=== PATIENT | male | born 1995 | race Caucasian/White ===

== ENCOUNTER 2017-01-24 13:42 | Emergency (ER) | payer BC ==
[2017-01-24] MEDS ORDERED: NS 1,000 ML IV ONE (16:04)
[2017-01-24] MEDS ORDERED: ONDANSETRON 4 MG/2 ML VIAL IVP ONE (16:04)
--- NOTE | 2017-01-24 16:04 | EDPHY ---
H & P Stated Complaint: RLQ abd. testile pain, freq, urgency, flank pain Source: Patient Exam Limitations: No limitations - Personal History Current Tetanus/Diphtheria Vaccine: Yes Current Tetanus Diphtheria and Acellular Pertussis (TDAP): Yes - Medical/Surgical History Hx Asthma: No Hx Chronic Respiratory Disease: No Hx Diabetes: No Hx Cardiac Disease: No Hx Renal Disease: No Hx Cirrhosis: No Hx Alcoholism: No Hx HIV/AIDS: No Hx Splenectomy or Spleen Trauma: No Other PMH: FOOT SURGERY - Social History Smoking Status: Never smoked HPI/ROS: CHIEF COMPLAINT: Abdominal pain, flank pain, testicular pain HISTORY OF PRESENT ILLNESS: Patient complains of 2 days history of right-sided flank and abdominal pain. Started the right flank and upper quadrant. It has moved to the right side of the abdomen. It radiates into the right testicle. Some moderate to severe pain. The right testicle is in moderate to severe pain as well. No position of comfort. He has had nausea but no vomiting. No fever chills. No trauma or injury. He does have frequent urination and difficulty urinating. No history of stones. No history of torsion. No history of penile discharge. Denies congenital cryptorchidism. No other associated complaints or modifying factors. REVIEW OF SYSTEMS: Ten systems reviewed and are negative unless otherwise noted in the HPI PAST MEDICAL HISTORY: Back pain PAST SURGICAL HISTORY: None SOCIAL HISTORY: Nonsmoker. Occasional alcohol. Occasional marijuana FAMILY HISTORY: Noncontributory EXAMINATION General Appearance: Alert, no distress but in obvious discomfort Head: normocephalic, atraumatic Eyes: Pupils equal and round, no conjunctival pallor or injection ENT, Mouth: Mucous membranes moist Neck: Normal inspection, supple, non-tender Respiratory: Lungs are clear to auscultation. No wheezing or rhonchi or crackles Cardiovascular: Regular rate and rhythm. No murmur. Pulses intact distally Gastrointestinal: Abdomen is soft and non distended. Tenderness in the right flank. Tenderness in the right upper quadrant right lower quadrant. No guarding. No tympany. No rigidity or distention. Back: non-tender, no bony abnormalities Neurological: A&O, nonfocal, normal gait Skin: Warm and dry, no rash Extremities: Nontender, no pedal edema Psychiatric: Mood and affect normal DIFFERENTIAL DIAGNOSES: Including but not limited to ureteral stone, renal stone, bladder calculus, appendicitis, testicular torsion, epididymitis, UTI, pyelonephritis, colitis MDM: 4:04 p.m. History examination that suggest is ureteral or renal stone. He does have flank and right-sided abdominal pain. But given the fact that he does have right-sided testicular pain, I have ordered ultrasound of the testicles. Proceed with CT scan for stone should this be negative. Urinalysis is pending. Laboratory studies are currently being drawn. IV fluid, pain medication have been ordered. He is in no acute distress. 4:30 p.m. Attempted to re-evaluate the patient, but ultrasound already in the room. Urinalysis shows 1+ blood but no signs of infection. CBC is completely unremarkable. Chemistry is also completely unremarkable. 4:35 p.m. Ultrasound has been performed. The plastic eye technician states an unofficial interpretation that there is no evidence of testicular torsion. Although I am awaiting the interpretation by radiologist, I will order CT scan of the abdomen pelvis to evaluate for ureteral stone. 4:40 p.m. I have re-evaluated the patient. His pain is improving. Still has a right- sided flank and abdominal pain. No guarding. Nonacute abdomen. There is no leukocytosis or fever. Chemistry is completely unremarkable. I have ordered Toradol for the possibility of ureteral renal stone. CT scan is pending. 4:55 p.m. Notified by radiologist Dr. Moses. Ultrasound of the testicle reveals no evidence of torsion. There is possible evidence of epididymitis on the right side, at the tail. I discussed this with the patient but he denies any sexual intercourse over the past 4 weeks. I have ordered un-clean urine studies for GC and chlamydia. I have also ordered a dose of intramuscular Rocephin 250 mg. I will prescribe him for doxycycline for empiric coverage. 5:00 p.m. At this time I have discussed the case with Dr. Andujar. He will assume care of the patient. This is pending CT scan and further urine studies. Please see his note for final disposition. (Felix Rock) Constitutional: Initial Vital Signs Temperature (C) 36.7 C 01/24/17 14:01 Heart Rate 78 01/24/17 14:01 Respiratory Rate 16 01/24/17 14:01 Blood Pressure 168/116 H 01/24/17 14:01 O2 Sat (%) 96 01/24/17 14:01 O2 Delivery Mode Room Air Allergies/Adverse Reactions: No Known Allergies Allergy (Unverified 06/26/15 07:14) Home Medications: Medication Instructions Recorded Amoxicillin Trihydrate 500 mg PO TID 7 Days cap 06/26/15 [Amoxicillin] Neomy Sulf/Polymyx B Sulf/Hc 3 drops OT BID 7 Days 06/26/15 [Cortisporin Otic Solution] Pen Vk 250 mg Prepack#6 06/26/15 oxyCODONE/APAP 5/325 [Percocet 1 - 2 tab PO Q4H PRN #20 tab 06/26/15 5/325 (*)] Doxycycline Hyclate 100 mg PO BID #28 tablet 01/24/17 Ondansetron Odt [Zofran Odt 4 mg 4 mg PO Q6 PRN #12 tab 01/24/17 (*)] oxyCODONE HCL/ACETAMINOPHEN 1 each PO Q4-6PRN PRN #11 tablet 01/24/17 [Percocet 5-325 mg Tablet] Medical Decision Making - Diagnostics Imaging Results: Imaging Impressions Testicular Ultrasound 01/24/17 16:03 Impression: Query epididymitis involving the tail of the right epididymis. Findings and recommendations discussed with Felix Rock PA-C at 1651 hours on January 24, 2017. Final report concurs with initial preliminary interpretation. Abdomen/Pelvis CT 01/24/17 16:34 Impression: 1. Trace free fluid of unclear etiology. 2. Constipation. 3. Additional findings as above. Findings discussed with Dr. Sheldon Andujar on January 24, 2017 at 1751 hours. Attention: This CT examination is specifically designed to evaluate patients who are clinically suspected of having acute obstructive uropathy. This examination does not use radiographic contrast, and as such, provides only a limited evaluation of the abdomen, pelvis and retroperitoneum. If there is further clinical suspicion for pathological conditions other than obstructive uropathy, a complete CT evaluation of the abdomen and pelvis utilizing intravenous and oral contrast should be considered. CT abdomen and pelvis without IV contrast contrast shows she is trace free fluid , constipation, normal appendix, no evidence for kidney stone. (Sheldon Andujar) Procedures: Patient received IM Rocephin. (Shedlon Andujar) ED Course/Re-evaluation: Patient is re-evaluated by me at 6:30 p.m.. He looks well and feels well. He and I discussed imaging and lab results. We discussed treatment plan including criteria for return importance of follow-up and further evaluation. He expresses understanding and agreement (Sheldon Andujar) Differential Diagnosis: We considered kidney stone, pyelonephritis, urinary tract infection, testicular torsion. We do have an ultrasound finding of epididymitis. We also considered appendicitis (Sheldon Andujar) - Data Points Laboratory Results: Laboratory Results 01/24/17 16:05 01/24/17 16:05 01/24/17 01/24/17 01/24/17 16:05 16:05 16:00 WBC 8.98 10^3/uL 10^3/uL (3.80-9.50) RBC 5.51 10^6/uL 10^6/uL (4.40-6.38) Hgb 17.0 g/dL g/dL (13.7-17.5) Hct 46.8 % % (40.0-51.0) MCV 84.9 fL fL (81.5-99.8) MCH 30.9 pg pg (27.9-34.1) MCHC 36.3 g/dL g/dL (32.4-36.7) RDW 12.1 % % (11.5-15.2) Plt Count 249 10^3/uL 10^3/uL (150-400) MPV 10.4 fL fL (8.7-11.7) Neut % (Auto) 65.2 % % (39.3-74.2) Lymph % (Auto) 24.9 % % (15.0-45.0) Pennington % (Auto) 8.2 % % (4.5-13.0) Eos % (Auto) 0.8 % % (0.6-7.6) Baso % (Auto) 0.6 % % (0.3-1.7) Nucleat RBC Rel Count 0.0 % % (0.0-0.2) Absolute Neuts (auto) 5.85 10^3/uL 10^3/uL (1.70-6.50) Absolute Lymphs (auto) 2.24 10^3/uL 10^3/uL (1.00-3.00) Absolute Monos (auto) 0.74 10^3/uL 10^3/uL (0.30-0.80) Absolute Eos (auto) 0.07 10^3/uL 10^3/uL (0.03-0.40) Absolute Basos (auto) 0.05 10^3/uL 10^3/uL (0.02-0.10) Absolute Nucleated RBC 0.00 10^3/uL 10^3/uL (0-0.01) Immature Gran % 0.3 % % (0.0-1.1) Immature Gran # 0.03 10^3/uL 10^3/uL (0.00-0.10) Sodium 140 mEq/L mEq/L (134-144) Potassium 3.4 mEq/L L mEq/L (3.5-5.2) Chloride 102 mEq/L mEq/L (97-110) Carbon Dioxide 26 mEq/l mEq/l (22-31) Anion Gap 12 mEq/L mEq/L (8-16) BUN 12 mg/dL mg/dL (7-23) Creatinine 1.1 mg/dL mg/dL (0.7-1.3) Estimated GFR > 60 Glucose 83 mg/dL mg/dL (70-100) Calcium 10.1 mg/dL mg/dL (8.5-10.4) Total Bilirubin 1.4 mg/dL mg/dL (0.1-1.4) Conjugated Bilirubin 0.3 mg/dL mg/dL (0.0-0.5) Unconjugated Bilirubin 1.1 mg/dL mg/dL (0.0-1.1) AST 20 IU/L IU/L (17-59) ALT 28 IU/L IU/L (21-72) Alkaline Phosphatase 74 IU/L IU/L (38-126) Total Protein 8.2 g/dL g/dL (6.3-8.2) Albumin 4.8 g/dL g/dL (3.5-5.0) Lipase 76 IU/L IU/L (23-300) Urine Color Urine Appearance Urine pH Ur Specific Morris Urine Protein Urine Ketones Urine Blood Urine Nitrate Urine Bilirubin Urine Urobilinogen Ur Leukocyte Esterase Urine RBC Urine WBC Ur Epithelial Cells Urine Mucus Urine Glucose C.trachomatis RNA (TMA) Pending N.gonorrhoeae RNA (TMA) Pending 01/24/17 16:00 WBC RBC Hgb Hct MCV MCH MCHC RDW Plt Count MPV Neut % (Auto) Lymph % (Auto) [place] % (Auto) Eos % (Auto) Baso % (Auto) Nucleat RBC Rel Count Absolute Neuts (auto) Absolute Lymphs (auto) Absolute Monos (auto) Absolute Eos (auto) Absolute Basos (auto) Absolute Nucleated RBC Immature Gran % Immature Gran # Sodium Potassium Chloride Carbon Dioxide Anion Gap BUN Creatinine Estimated GFR Glucose Calcium Total Bilirubin Conjugated Bilirubin Unconjugated Bilirubin AST ALT Alkaline Phosphatase Total Protein Albumin Lipase Urine Color YELLOW Urine Appearance CLEAR Urine pH 6.0 (5.0-7.5) Ur Specific Morris 1.026 (1.002-1.030) Urine Protein NEGATIVE (NEGATIVE) Urine Ketones NEGATIVE (NEGATIVE) Urine Blood 1+ H (NEGATIVE) Urine Nitrate NEGATIVE (NEGATIVE) Urine Bilirubin NEGATIVE (NEGATIVE) Urine Urobilinogen 2.0 EU H EU (0.2-1.0) Ur Leukocyte Esterase NEGATIVE (NEGATIVE) Urine RBC 1-3 /hpf /hpf (0-3) Urine WBC 1-3 /hpf /hpf (0-3) Ur Epithelial Cells TRACE /lpf /lpf (NONE-1+) Urine Mucus 1+ /lpf /lpf (NONE-1+) Urine Glucose NEGATIVE (NEGATIVE) C.trachomatis RNA (TMA) N.gonorrhoeae RNA (TMA) Medications Given: Discontinued Medications Ceftriaxone Sodium (Rocephin Im Syringe) 250 mg IM EDNOW ONE PRN Reason: Protocol Stop: 01/24/17 16:56 Last Admin: 01/24/17 18:01 Dose: 250 mg Sodium Chloride (Ns) 1,000 mls @ 0 mls/hr IV EDNOW ONE; Wide Open PRN Reason: Protocol Stop: 01/24/17 16:05 Last Admin: 01/24/17 16:18 Dose: 1,000 mls Ketorolac Tromethamine (Toradol) 30 mg IVP EDNOW ONE Stop: 01/24/17 16:37 Last Admin: 01/24/17 16:46 Dose: 30 mg Morphine Sulfate (Morphine) 4 mg IVP EDNOW ONE Stop: 01/24/17 16:05 Last Admin: 01/24/17 16:15 Dose: 4 mg Ondansetron HCl (Zofran) 4 mg IVP EDNOW ONE Stop: 01/24/17 16:05 Last Admin: 01/24/17 16:15 Dose: 4 mg Departure - Departure Disposition: Home, Routine, Self-Care Clinical Impression: Flank pain, Testicular pain, right, Epididymitis Condition: Good Instructions: Epididymitis (ED) Additional Instructions: Scrotal support. Ibuprofen 600 mg every 6 hours. Percocet in addition as needed for pain. Doxycycline as antibiotic. Return for worsening symptoms including fever, worsening abdominal pain. Recheck in 2-3 days without fail Referrals: Nicholas Walters MD [Medical Doctor] - As per Instructions NONE *PRIMARY CARE P,. [Primary Care Provider] - As per Instructions Braeden Mccracken MD [Medical Doctor] - 2-3 days without fail Prescriptions: Doxycycline Hyclate 100 mg PO BID #28 tablet Ondansetron Odt [Zofran Odt 4 mg (*)] 4 mg PO Q6 PRN #12 tab PRN Reason: Nausea/Vomiting, Use 1st oxyCODONE HCL/ACETAMINOPHEN [Percocet 5-325 mg Tablet] 1 each PO Q4-6PRN PRN # 11 tablet PRN Reason: Pain, Breakthrough
[2017-01-24 16:16] LABS: % IMMATURE GRANULYOCYTES 0.3 % (0.0-1.1); ABSOLUTE IMMATURE GRANULOCYTES 0.03 10^3/uL (0.00-0.10); ADD DIFF? NO; ADD MORPH? NO; ADD SCAN? NO; ATYPICAL LYMPHOCYTE FLAG 10 (0-99); FRAGMENT RBC FLAG 0 (0-99); HEMATOCRIT 46.8 % (40.0-51.0); LEFT SHIFT FLG 0 (0-99); LIPEMIA HEMOLYSIS FLAG 90 (0-99); MEAN CELL HEMOGLOBIN 30.9 pg (27.9-34.1); MEAN CELL HEMOGLOBIN CONCENTR. 36.3 g/dL (32.4-36.7); MEAN CELL VOLUME 84.9 fL (81.5-99.8); MEAN PLATELET VOLUME 10.4 fL (8.7-11.7); PLATELET CLUMPS FLAG 0 (0-99); PLATELET COUNT 249 10^3/uL (150-400); RED BLOOD CELL COUNT 5.51 10^6/uL (4.40-6.38); RED CELL DISTRIBUTION WIDTH 12.1 % (11.5-15.2)
[2017-01-24 16:20] LABS: COLOR YELLOW; LEUKOCYTE ESTERASE,URINE NEGATIVE (NEGATIVE); MUCUS 1+ /lpf (NONE-1+); NITRITE,URINE NEGATIVE (NEGATIVE)
[2017-01-24 16:28] LABS: ALANINE AMINOTRANSFERASE 28 IU/L (21-72); ALBUMIN 4.8 g/dL (3.5-5.0); ALKALINE PHOSPHATASE 74 IU/L (38-126); ANION GAP 12 mEq/L (8-16); ASPARTATE AMINOTRANSFERASE 20 IU/L (17-59); BILIRUBIN,TOTAL 1.4 mg/dL (0.1-1.4); BILIRUBIN-CONJUGATED 0.3 mg/dL (0.0-0.5); BILIRUBIN-UNCONJUGATED 1.1 mg/dL (0.0-1.1); CALCIUM 10.1 mg/dL (8.5-10.4); CARBON DIOXIDE 26 mEq/l (22-31); CHLORIDE 102 mEq/L (97-110); CREATININE 1.1 mg/dL (0.7-1.3); GLOMERULAR FILTRATION RATE > 60; GLUCOSE 83 mg/dL (70-100); POTASSIUM 3.4 mEq/L (3.5-5.2); SODIUM 140 mEq/L (134-144); TOTAL PROTEIN 8.2 g/dL (6.3-8.2)
[2017-01-24] MEDS ORDERED: KETOROLAC 30 MG/1 ML SDV IVP ONE (16:36)
[2017-01-24] MEDS ORDERED: CEFTRIAXONE IM 350 MG/ML SYRINGE IM ONE (16:55)
[2017-01-24 17:03] VITALS: RESP 18
[2017-01-24 18:48] VITALS: BP 167/87; PULSE 73; TEMP 98.4; O2SAT 91
[2017-01-25 13:11] LABS: CHLAMYDIA AMPLIFICATION GENPRB NEGATIVE (NEGATIVE)
== END 2017-01-24 18:48 | disposition home or self-care (01) ==
DX: N45.1 Epididymitis (principal); E86.9 Volume depletion, unspecified
CPT/HCPCS: 96374; J0696; J1885; J2405